=== PATIENT | male | born 1995 | race Two or more races ===

== ENCOUNTER 2019-02-16 14:29 | Emergency (ER) | payer OTHER ==
[~2019-02-16] VITALS: Ht 175.3 cm; Wt 68.2 kg
[2019-02-16 16:05] VITALS: BP 121/69
== END 2019-02-16 16:35 | disposition home or self-care (01) ==
LOC: EMS 14:32
DX: Z02.89 Encounter for other administrative examinations (principal); F17.210 Nicotine dependence, cigarettes, uncomplicated; F15.90 Other stimulant use, unspecified, uncomplicated
CPT/HCPCS: 74018; 74176